=== PATIENT | male | born 1995 | race Caucasian/White ===

== ENCOUNTER 2017-11-17 09:28 | Emergency (ER) | payer MEDICAID ==
[~2017-11-17] VITALS: Ht 165.1 cm; Wt 55.3 kg
[2017-11-17 09:34] VITALS: BP 113/63; Ht 165.1 cm; Wt 55.3 kg
== END 2017-11-17 10:24 | disposition home or self-care (01) ==
LOC: ED 09:28
DX: H66.93 Otitis media, unspecified, bilateral (principal); J06.9 Acute upper respiratory infection, unspecified

== ENCOUNTER 2018-01-07 12:52 | Emergency (ER) | payer MEDICAID ==
[~2018-01-07] VITALS: Ht 165.1 cm; Wt 53.5 kg
[2018-01-07 12:56] VITALS: Ht 165.1 cm; Wt 53.5 kg
[2018-01-07 13:29] LABS: BASOPHIL % 0.3 % (0-2); PLATELET COUNT 173 x10^3mcL (130-400); RED CELL DISTRIBUTION WIDTH 14.4 % (11.5-14.5)
[2018-01-07 13:37] LABS: CALCIUM 9.5 mg/dL (8.5-10.1); CARBON DIOXIDE 26.6 mmol/L (21-32); CHLORIDE SERUM 102 mmol/L (98-107); CREATININE SERUM 1.2 mg/dL (0.7-1.3); GFR1 > 60 mL/min; GLUCOSE SERUM 111 mg/dL (74-106); POTASSIUM SERUM 3.6 mmol/L (3.5-5.1); SODIUM SERUM 141 mmol/L (136-145)
[2018-01-07 13:41] LABS: ALBUMIN 4.6 g/dL (3.4-5.0); ALKALINE PHOSPHATASE 104 U/L (46-116); ALT/SGPT 34 U/L (16-63); AMYLASE 41 U/L (25-115); AST/SGOT 18 U/L (15-37); BILIRUBIN TOTAL 0.58 mg/dL (0.20-1.00); LIPASE 91 IU/L (73-393)
[2018-01-07 15:30] VITALS: BP 109/70
== END 2018-01-07 15:30 | disposition home or self-care (01) ==
LOC: ED
PROVIDERS: Specialist
DX: N23 Unspecified renal colic (principal); Z87.442 Personal history of urinary calculi
CPT/HCPCS: J1885; J2270; J2405; J3490; J7030

== ENCOUNTER 2018-12-02 04:17 | Emergency (ER) | payer MEDICAID ==
[~2018-12-02] VITALS: Ht 165.1 cm; Wt 64.0 kg
[2018-12-02 04:32] VITALS: Ht 165.1 cm; Wt 64.0 kg
[2018-12-02 05:37] VITALS: BP 120/58
== END 2018-12-02 07:13 | disposition home or self-care (01) ==
LOC: ED 04:17
DX: H66.92 Otitis media, unspecified, left ear (principal); Z87.442 Personal history of urinary calculi
CPT/HCPCS: J0696